=== PATIENT | male | born 1960 | race Caucasian/White ===

== ENCOUNTER 2023-04-21 21:07 | Emergency (ER) | payer MEDICARE, MEDICAID ==
[~2023-04-21] VITALS: Ht 180.3 cm; Wt 91.8 kg
[2023-04-21 22:26] LABS: ALBUMIN 2.8 G/DL (3.4-5.0); ANION GAP 9 (8-16); BASOPHILS # (AUTO) 0.1 X10'3 (0-0.2); BLOOD UREA NITROGEN 22 MG/DL (7-18); BUN/CREATININE RATIO 16.2 (10.0-20.0); CALCIUM 8.1 MG/DL (8.5-10.1); CHLORIDE 105 MMOL/L (99-107); CREATININE 1.36 MG/DL (0.60-1.10); EOSINOPHILS # (AUTO) 0.3 X10'3 (0-0.9); EOSINOPHILS % (AUTO) 2.3 % (0-6); GLUCOSE 143 MG/DL (70-104); HEMATOCRIT 43.3 % (42.0-52.0); HEMOGLOBIN 14.4 g/dl (14.0-17.9); LIPASE 33 U/L (16-77); LYMPHOCYTES % (AUTO) 38.6 % (21-51); MEAN CORPUSCULAR HEMOGLOBIN 29.7 PG (27.0-31.0); MEAN CORPUSCULAR HGB CONC 33.2 g/dL (33.0-36.5); MEAN CORPUSCULAR VOLUME 89.4 FL (78-98); MEAN PLATELET VOLUME 8.1 FL (7.4-10.4); MONOCYTES # (AUTO) 1.3 X10'3 (0-0.9); MONOCYTES % (AUTO) 9.8 % (2-12); NEUTROPHILS # (AUTO) 6.3 X10'3 (1.8-7.7); NEUTROPHILS % (AUTO) 48.3 % (42-75); PLATELET COUNT 283 X10'3 (140-440); RED BLOOD COUNT 4.85 X10'6 (4.70-6.10); SODIUM 140 MMOL/L (135-145); TOTAL CARBON DIOXIDE 26.2 MMOL/L (24-32); WHITE BLOOD COUNT 13.1 X10'3 (4.5-11.0); eCRCL 58 ML/MIN; eGFR 53 ML/MIN
[2023-04-21] MEDS ORDERED: ONDA4TAB12 PO (23:10)
[2023-04-21] MEDS ORDERED: DICY20TA17 PO (23:10)
[2023-04-21] MEDS ORDERED: HYDR-3965 PO (23:10)
[2023-04-21] MEDS: ondansetron 4mg rapidly disintigrating tab PO ONE (23:15)
[2023-04-22] MEDS: HYDROcodone/acetaminophen 10/325mg tab PO ONE (00:31)
[2023-04-22 01:03] VITALS: BP 106/67; PULSE 59; RESP 18; TEMP 98; O2SAT 98
[2023-04-22 01:35] LABS: BILIRUBIN,URINE NEGATIVE (Neg); CLARITY,URINE SLIGHTLY CLOUDY (Clear); COLOR,URINE YELLOW (Yellow); GLUCOSE, URINE 100 mg/dl (Neg); KETONES,URINE NEGATIVE (Neg); LEUKOCYTE ESTERASE ,URINE NEGATIVE (Neg); NITRITES, URINE NEGATIVE (Neg); OCCULT BLOOD,URINE NEGATIVE (Neg); PH,URINE 6.5 (4.8-8.0); PROTEIN,URINE NEGATIVE (Neg); UROBILINOGEN,URINE 0.2 E.U/dL (0.2-1.0)
[2023-04-22 01:43] LABS: UA COLLECTION TYPE NON-SPECIFIED
[2023-04-22 01:44] LABS: SQUAMOUS EPITHELIAL CELL,UR MANY /LPF (FEW)
[2023-04-22 01:45] LABS: BACTERIA,URINE 3+ /HPF (Neg); RBC,URINE 0-2 /HPF (0-2)
== END 2023-04-22 03:50 | disposition home or self-care (01) ==
LOC: ER 21:09
DX: K86.2 Cyst of pancreas (principal)
CPT/HCPCS: 36415; 71045; 80048; 81001; 83690; 84145; 85025; 87040; 99284